=== PATIENT | male | born 1980 | race Caucasian/White ===

== ENCOUNTER 2021-08-13 09:36 | Emergency (ER) | payer MEDICAID ==
[~2021-08-13] VITALS: Ht 175.3 cm; Wt 81.6 kg
[2021-08-13 10:25] VITALS: BP_SYST 111
[2021-08-13 10:32] VITALS: BP_SYST 111
== END 2021-08-13 10:32 | disposition home or self-care (01) ==
LOC: SED 09:36
DX: Z48.02 Encounter for removal of sutures (principal)
CPT/HCPCS: 99281